=== PATIENT | female | born 1980 | race Caucasian/White ===

== ENCOUNTER 2016-10-20 09:55 | Emergency (ER) | payer OTHER ==
[~2016-10-20] VITALS: Ht 165.1 cm; Wt 79.2 kg
[~2016-10-20 09:55] MED LIST: GEODON20 MG PO; LEXAPRO5 MG PO; MOTRIN800 MG PO; NAPROXEN500 MG PO; PERCOCET 5/31 TABLET PO
[2016-10-20] MEDS ORDERED: ZIPRASIDONE HCL20 MG PO (10:27)
[2016-10-20] MEDS ORDERED: ESCITALOPRAM OXA5 MG PO (10:27)
[2016-10-20 11:13] LABS: EOSINOPHIL (%) 0.8 % (0-5); EOSINOPHIL COUNT 0.1 K/uL (0-0.3); HEMATOCRIT 40.6 % (36.0-46.0); IMMATURE GRANULOCYTE (%) 0.5 % (0.0-0.7); INSTRUMENT ABS NEUTROPHIL CT 7.2 K/uL; LYMPHOCYTE COUNT 1.3 K/uL (1.0-2.8); MCV 85.8 FL (83-99); MEAN PLAT.VOLUME 9.6 uM^3 (9.5-12.4); MONOCYTE (%) 2.4 % (3-12); MONOCYTE COUNT 0.2 K/uL (0-0.8); NEUTROPHIL (%) 81.4 % (45-76); NEUTROPHIL COUNT 7.2 K/uL (1.8-6.4); PLATELET COUNT 300 K/uL (156-360); RBC DIS.WIDTH-CV 11.7 % (11.8-14.6); RBC DIS.WIDTH-SD 36.8 % (39-53); RED BLOOD COUNT 4.73 M/uL (3.80-5.20); WHITE BLOOD COUNT 8.8 K/uL (4.1-10.2)
[2016-10-20 11:23] LABS: CHLORIDE 111 mEq/L (99-109); POTASSIUM 3.9 mEq/L (3.7-5.4); SODIUM 136 mEq/L (136-147)
[2016-10-20 11:24] LABS: GLUCOSE 124 mg/dL (70-99)
[2016-10-20 11:26] LABS: ANION GAP 2 MEQ/L (2-14)
[2016-10-20 11:28] LABS: GFR ESTIMATE (CALCULATED) > 59 mL/min/
[2016-10-20 11:29] LABS: UREA NITROGEN (BUN) 12 mg/dL (9-23)
[2016-10-20 11:35] LABS: TROP-I INTERPRETATION NEGATIVE; TROPONIN-I < 0.01 ng/mL (0.0-0.30)
[2016-10-20] MEDS ORDERED: NEXIUM40 MG PO (12:00)
[2016-10-20] MEDS ORDERED: CARAFATE100 MG/ML PO (12:00)
[2016-10-20 12:23] VITALS: BP 105/65
== END 2016-10-20 12:24 | disposition home or self-care (01) ==
LOC: EME 09:55
PROVIDERS: Emergency Medicine
DX: R07.9 Chest pain, unspecified (principal); K44.9 Diaphragmatic hernia without obstruction or gangrene; F32.9 Major depressive disorder, single episode, unspecified; F41.9 Anxiety disorder, unspecified; Z87.891 Personal history of nicotine dependence
CPT/HCPCS: 71010; 80048; 84484; 85025; 93005; 99281; 99284